=== PATIENT | female | born 1995 | race Hispanic/Latino ===

== ENCOUNTER 2019-07-06 21:13 | Emergency (ER) | payer MEDICAID, OTHER ==
[2019-07-06] MEDS ORDERED: ACETAMINOPHEN EXTRA STRENGTH 500 MG TABLET ONE (21:28)
[2019-07-06 22:02] LABS: RAPID GROUP A STREP NEGATIVE (NEGATIVE)
== END 2019-07-06 22:28 | disposition home or self-care (01) ==
LOC: EDH 21:13
DX: J06.9 Acute upper respiratory infection, unspecified (principal)
CPT/HCPCS: 87804; 87880